=== PATIENT | male | born 1940 | race Caucasian/White ===

== ENCOUNTER → 2016-09-29 | Outpatient (CLI) | payer OTHER ==
[~2016-09-29] MED LIST: ASPIRIN81 M2 PO; AVALIDE 150/1 TABLET PO; COUMADIN1 MG PO; ENDOCET 5-3251 EACH PO; FLUOROURACIL40 GM TP; GLUCOSAMINE &1 EAC1 PO; LORAZEPAM0.5 MG PO; MULTIPLE VITAM1 EACH PO; NIACIN500 M4 PO; VITAMIN D31000 UNIT PO; ZOFRAN4 MG PO
[2016-09-30 16:13] LABS: Flow Clinical Information NOT PROVIDED (()); Flow Number of Markers 22 (()); Flow Spec Viability 66 % (())
== END | disposition home or self-care (01) ==
LOC: OPR 09:44 → EDSTATUS 10:00
PROVIDERS: Radiology Diagnostic Radiology
PROC: 0YB53ZX Excision of Right Inguinal Region, Percutaneous Approach, Diagnostic (ICD-10-PCS; principal; 2016-09-29)
DX: C85.95 Non-Hodgkin lymphoma, unspecified, lymph nodes of inguinal region and lower limb (principal); F17.200 Nicotine dependence, unspecified, uncomplicated; R91.1 Solitary pulmonary nodule
CPT/HCPCS: 77012; 88184 90; 88185 90; 88189 90; 88305; 88341 TC; 88342 TC; J2405; J3010

== ENCOUNTER → 2016-11-12 | Outpatient (CLI) | payer OTHER ==
[~2016-11-12] VITALS: Ht 177.8 cm; Wt 104.3 kg
[2016-11-12 10:14] LABS: PROTHROMBIN TIME 11.4 SEC (10.2-12.9)
[2016-11-12 10:16] LABS: PTT 32.3 SEC (25-37)
== END | disposition home or self-care (01) ==
LOC: OPR 09:33 → EDSTATUS 10:00
PROVIDERS: Internal Medicine Hematology & Oncology
PROC: 0BBF3ZX Excision of Right Lower Lung Lobe, Percutaneous Approach, Diagnostic (ICD-10-PCS; principal; 2016-11-12)
DX: R91.1 Solitary pulmonary nodule (principal); Z85.72 Personal history of non-Hodgkin lymphomas
CPT/HCPCS: 71010; 77012; 85610; 85730; 88305; 88341 TC; 88342 TC; J3010

== ENCOUNTER → 2016-11-27 | Outpatient (CLI) | payer OTHER | END | disposition home or self-care (01) | LOC: OPR 08:44 → EDSTATUS 09:00 | PROC: 0JB73ZX Excision of Back Subcutaneous Tissue and Fascia, Percutaneous Approach, Diagnostic (ICD-10-PCS; principal; 2016-11-27) | DX: C34.31 Malignant neoplasm of lower lobe, right bronchus or lung (principal); C85.93 Non-Hodgkin lymphoma, unspecified, intra-abdominal lymph nodes | CPT/HCPCS: 77012; 88305; 88342 TC; J3010 ==

== ENCOUNTER → 2016-12-10 | Outpatient (CLI) | payer OTHER ==
[~2016-12-10] VITALS: Ht 177.8 cm; Wt 105.2 kg
[~2016-12-10] MED LIST changes: +LO-DOSE ASPIRIN81 M1 PO
[2016-12-10 10:21] LABS: MCH 29.7 PG (29.0-34.0); MCV 87.6 FL (86-99); MEAN PLAT.VOLUME 9.8 uM^3 (9.0-12.4); PLATELET COUNT 208 K/uL (156-360); RBC DIS.WIDTH-CV 13.1 % (11.8-14.6); RBC DIS.WIDTH-SD 41.7 % (39-53); RED BLOOD COUNT 4.91 M/uL (4.00-5.50); WHITE BLOOD COUNT 9.1 K/uL (4.1-10.2)
== END | disposition home or self-care (01) ==
LOC: OPR 09:19 → EDSTATUS 10:00
PROVIDERS: Internal Medicine Hematology & Oncology
PROC: 0BBF3ZX Excision of Right Lower Lung Lobe, Percutaneous Approach, Diagnostic (ICD-10-PCS; principal; 2016-12-10)
DX: J84.10 Pulmonary fibrosis, unspecified (principal); R59.9 Enlarged lymph nodes, unspecified; J95.811 Postprocedural pneumothorax; E11.9 Type 2 diabetes mellitus without complications; I10 Essential (primary) hypertension; Z90.49 Acquired absence of other specified parts of digestive tract; Z98.1 Arthrodesis status
CPT/HCPCS: 71010; 77012; 85027; 88305; J3010

== ENCOUNTER → 2017-08-23 | Outpatient (CLI) | payer OTHER ==
[2017-08-23 08:09] LABS: BASE EXCESS 1.2 mEq/L (-3 to +3); BICARBONATE 25.1 mEq/L (22-26); CARBOXY HGB 1.9 % (0-5); METHEMOGLOBIN 1.1 % (0-1.5); PCO2 37 mm Hg (35-45); PO2 85 mm Hg (80-100); pH 7.44 (7.35-7.45)
[2017-08-23 08:10] LABS: COMMENTS - BLOOD GASES NAC+; FI02 21 %; SITE RR
== END | disposition home or self-care (01) ==
LOC: RES 07:33
PROVIDERS: Thoracic Surgery (Cardiothoracic Vascular Surgery)
DX: R91.8 Other nonspecific abnormal finding of lung field (principal)
CPT/HCPCS: 36600; 82803; 94060; 94726; 94729

== ENCOUNTER → 2017-08-25 | Outpatient (CLI) | payer MEDICARE, OTHER | END | disposition home or self-care (01) | LOC: CDC 15:20 | DX: I45.10 Unspecified right bundle-branch block (principal); R94.31 Abnormal electrocardiogram [ECG] [EKG] | CPT/HCPCS: 93000 ==

== ENCOUNTER 2017-09-02 22:16 | Inpatient (IN) | payer OTHER ==
[~2017-09-02] VITALS: Ht 177.8 cm; Wt 120.1 kg
[2017-09-03 07:26] LABS: INTER. NORMALIZED RATIO 1.1
[2017-09-03 07:46] VITALS: BP 156/85
[2017-09-03 14:27] VITALS: BP 160/74
[2017-09-03 15:45] VITALS: BP 151/78
[2017-09-03 19:46] VITALS: BP 136/80
[2017-09-03 23:42] VITALS: BP 139/68
[2017-09-04 04:37] VITALS: BP 149/71
[2017-09-04 06:55] LABS: HEMATOCRIT 39.3 % (38.0-50.0); HEMOGLOBIN 13.4 G/DL (12.5-16.6); MCH 30.6 PG (29.0-34.0); MCHC 34.1 G/DL (30.0-36.0); MCV 89.7 FL (86-99); PLATELET COUNT 201 K/uL (156-360); RBC DIS.WIDTH-CV 12.9 % (11.8-14.6); RBC DIS.WIDTH-SD 42.4 % (39-53); RED BLOOD COUNT 4.38 M/uL (4.00-5.50); WHITE BLOOD COUNT 15.1 K/uL (4.1-10.2)
[2017-09-04 07:21] LABS: CHLORIDE 103 MEQ/L (99-109); CREATININE 0.8 MG/DL (0.6-1.3); GFR ESTIMATE (CALCULATED) > 59 mL/min/ (58.99-99999); GLUCOSE 113 mg/dL (70-99); POTASSIUM 4.7 MEQ/L (3.7-5.4); SODIUM 139 MEQ/L (136-147); UREA NITROGEN (BUN) 13 mg/dL (9-23)
[2017-09-04 08:56] VITALS: BP 153/72
[2017-09-04 11:39] VITALS: BP 144/68
[2017-09-04 16:34] VITALS: BP 144/69
[2017-09-04 20:27] VITALS: BP 144/67
[2017-09-05 01:40] VITALS: BP 145/65
[2017-09-05 06:15] LABS: HEMATOCRIT 41.5 % (38.0-50.0); HEMOGLOBIN 13.8 G/DL (12.5-16.6); MCH 30.3 PG (29.0-34.0); MCHC 33.3 G/DL (30.0-36.0); PLATELET COUNT 215 K/uL (156-360); RBC DIS.WIDTH-CV 13.3 % (11.8-14.6); RBC DIS.WIDTH-SD 44.4 % (39-53); RED BLOOD COUNT 4.56 M/uL (4.00-5.50); WHITE BLOOD COUNT 14.4 K/uL (4.1-10.2)
[2017-09-05 06:25] VITALS: BP 150/65
[2017-09-05 08:40] VITALS: BP 140/73
[2017-09-05 12:18] VITALS: BP 142/72
[2017-09-05 20:06] VITALS: BP 149/72
[2017-09-06 00:03] VITALS: BP 168/81
[2017-09-06 08:00] VITALS: BP 130/65
[2017-09-06 12:22] VITALS: BP 167/84
[2017-09-06 15:49] VITALS: BP 143/74
[2017-09-06 19:43] VITALS: BP 155/81
[2017-09-06 23:17] VITALS: BP 134/75
[2017-09-07 04:28] VITALS: BP 153/82
[2017-09-07 06:55] LABS: HEMATOCRIT 40.3 % (38.0-50.0); HEMOGLOBIN 13.8 G/DL (12.5-16.6); MCH 30.9 PG (29.0-34.0); MCHC 34.2 G/DL (30.0-36.0); MCV 90.4 FL (86-99); PLATELET COUNT 243 K/uL (156-360); RBC DIS.WIDTH-CV 13.1 % (11.8-14.6); RED BLOOD COUNT 4.46 M/uL (4.00-5.50); WHITE BLOOD COUNT 12.1 K/uL (4.1-10.2)
[2017-09-07 07:47] VITALS: BP 127/78
[2017-09-07 12:06] VITALS: BP 145/81
[2017-09-07 16:17] VITALS: BP 123/73
[2017-09-07 19:53] VITALS: BP 144/75
[2017-09-07 23:55] VITALS: BP 128/72
[2017-09-08 04:08] VITALS: BP 127/68
[2017-09-08 08:53] VITALS: BP 119/69
[2017-09-08 11:55] VITALS: BP 131/71
[2017-09-08 16:47] VITALS: BP 142/73
[2017-09-08] MEDS ORDERED: DOCUSATE SODIU100 MG PO (19:23)
[2017-09-08] MEDS ORDERED: OXYCODONE HCL5 MG PO (19:23)
[2017-09-22] MEDS ORDERED: COLACE100 MG PO (11:32)
[2017-09-22] MEDS ORDERED: BACTRIM,SEPT1 TABLET PO (11:33)
[2017-09-22] MEDS ORDERED: FLOMAX0.4 MG PO (11:33)
== END 2017-09-08 20:15 | disposition home or self-care (01) | DRG 164 ==
LOC: ENRESERV 22:16 → 3EAST 09-03 06:43 → 4WEST 09-03 06:43 → 2SOUTH 09-03 06:43 → ENRESERV 09-03 09:29 → CANRESERV 09-03 09:29 → 2SOUTH 09-03 11:26 → CANRESERV 09-03 13:34 → ENRESERV 09-03 13:34 → 3EAST 09-03 14:13
PROVIDERS: Surgery; Thoracic Surgery (Cardiothoracic Vascular Surgery)
PROC: 0BBF4ZZ Excision of Right Lower Lung Lobe, Percutaneous Endoscopic Approach (ICD-10-PCS; principal; 2017-09-03)
DX: C34.31 Malignant neoplasm of lower lobe, right bronchus or lung (principal); C78.2 Secondary malignant neoplasm of pleura; Q85.9 Phakomatosis, unspecified; I10 Essential (primary) hypertension; I45.10 Unspecified right bundle-branch block; G47.30 Sleep apnea, unspecified; M47.9 Spondylosis, unspecified; N40.0 Benign prostatic hyperplasia without lower urinary tract symptoms; Z87.891 Personal history of nicotine dependence; Z85.72 Personal history of non-Hodgkin lymphomas; Z85.828 Personal history of other malignant neoplasm of skin; Z92.21 Personal history of antineoplastic chemotherapy; Z96.651 Presence of right artificial knee joint; Z79.82 Long term (current) use of aspirin; Z80.0 Family history of malignant neoplasm of digestive organs
CPT/HCPCS: 71045; 71046; 80048; 85027; 85610; 86850; 86870; 86900; 86901; 86920; 88307; 88313; 88341 TC; 88342 TC; 94640; 94640 76; 94799; 97530 GO; 97530 GP; 99202; J0131; J0690; J1100; J1170; J1644; J1885; J2405; J2710; J3010; J7120; J7643

== ENCOUNTER 2017-09-23 21:39 | Inpatient (IN) | payer OTHER ==
[~2017-09-23] VITALS: Ht 177.8 cm; Wt 110.6 kg
[~2017-09-23 21:39] MED LIST changes: +BACTRIM,SEPT1 TABLET PO; +COLACE100 MG PO; +DOCUSATE SODIU100 MG PO; +FLOMAX0.4 MG PO; +OXYCODONE HCL5 MG PO
[2017-09-24] VITALS (10 sets, daily range): BP systolic 121–142; BP diastolic 53–82
[2017-09-24 06:30] LABS: INTER. NORMALIZED RATIO 1.1
[2017-09-24 06:33] LABS: PTT 28.7 SEC (25-37)
[2017-09-25 09:10] LABS: CHLORIDE 100 MEQ/L (99-109); CREATININE 0.8 MG/DL (0.6-1.3); GFR ESTIMATE (CALCULATED) > 59 mL/min/ (58.99-99999); GLUCOSE 128 mg/dL (70-99); POTASSIUM 4.8 MEQ/L (3.7-5.4); SODIUM 132 MEQ/L (136-147); UREA NITROGEN (BUN) 15 mg/dL (9-23)
[2017-09-25 09:34] VITALS: BP 124/59
[2017-09-25 09:47] LABS: HEMATOCRIT 34.4 % (38.0-50.0); HEMOGLOBIN 11.4 G/DL (12.5-16.6); MCH 30.1 PG (29.0-34.0); MCHC 33.1 G/DL (30.0-36.0); MCV 90.8 FL (86-99); PLATELET COUNT 244 K/uL (156-360); RBC DIS.WIDTH-CV 13.2 % (11.8-14.6); RBC DIS.WIDTH-SD 42.8 % (39-53); RED BLOOD COUNT 3.79 M/uL (4.00-5.50); WHITE BLOOD COUNT 15.6 K/uL (4.1-10.2)
[2017-09-25 11:58] VITALS: BP 110/61
[2017-09-25 15:49] VITALS: BP 112/72
[2017-09-25 19:23] VITALS: BP 132/61
[2017-09-25 23:45] VITALS: BP 108/56
[2017-09-26 04:40] VITALS: BP 122/59
[2017-09-26 07:25] VITALS: BP 122/63
[2017-09-26 11:56] VITALS: BP 140/93
[2017-09-26 15:32] VITALS: BP 155/70
[2017-09-26 19:43] VITALS: BP 142/67
[2017-09-26 23:05] VITALS: BP 140/63
[2017-09-27 04:16] VITALS: BP 151/103
[2017-09-27 05:48] LABS: HEMATOCRIT 32.9 % (38.0-50.0); HEMOGLOBIN 11.1 G/DL (12.5-16.6); MCH 30.4 PG (29.0-34.0); MCHC 33.7 G/DL (30.0-36.0); MCV 90.1 FL (86-99); PLATELET COUNT 211 K/uL (156-360); RBC DIS.WIDTH-CV 13.3 % (11.8-14.6); RBC DIS.WIDTH-SD 43.6 % (39-53); RED BLOOD COUNT 3.65 M/uL (4.00-5.50); WHITE BLOOD COUNT 12.6 K/uL (4.1-10.2)
[2017-09-27 06:07] LABS: CHLORIDE 105 MEQ/L (99-109); CREATININE 0.8 MG/DL (0.6-1.3); GFR ESTIMATE (CALCULATED) > 59 mL/min/ (58.99-99999); GLUCOSE 119 mg/dL (70-99); MAGNESIUM 2.2 mg/dl (1.3-2.7); PHOSPHORUS 2.6 mg/dL (2.5-4.9); POTASSIUM 4.3 MEQ/L (3.7-5.4); SODIUM 137 MEQ/L (136-147); UREA NITROGEN (BUN) 15 mg/dL (9-23)
[2017-09-27 07:28] VITALS: BP 156/67
[2017-09-27 11:50] VITALS: BP 123/58
[2017-09-27 16:20] VITALS: BP 143/65
[2017-09-27 20:21] VITALS: BP 126/60
[2017-09-28 00:37] VITALS: BP 136/61
[2017-09-28 05:01] VITALS: BP 147/68
[2017-09-28 09:00] VITALS: BP 140/80
[2017-09-28 10:09] VITALS: BP 133/63
[2017-09-28 16:30] VITALS: BP 147/69
[2017-09-28 19:52] VITALS: BP 139/65
[2017-09-29 00:30] VITALS: BP 137/75
[2017-09-29 04:31] VITALS: BP 151/68
[2017-09-29 04:43] LABS: HEMATOCRIT 32.9 % (38.0-50.0); HEMOGLOBIN 11.5 G/DL (12.5-16.6); MCH 31.4 PG (29.0-34.0); MCV 89.9 FL (86-99); PLATELET COUNT 236 K/uL (156-360); RBC DIS.WIDTH-CV 13.5 % (11.8-14.6); RBC DIS.WIDTH-SD 44.2 % (39-53); RED BLOOD COUNT 3.66 M/uL (4.00-5.50); WHITE BLOOD COUNT 11.2 K/uL (4.1-10.2)
[2017-09-29 04:53] LABS: CHLORIDE 103 mEq/L (99-109); POTASSIUM 4.5 mEq/L (3.7-5.4); SODIUM 137 mEq/L (136-147)
[2017-09-29 04:55] LABS: GLUCOSE 112 mg/dL (70-99)
[2017-09-29 04:58] LABS: CREATININE 0.8 mg/dL (0.6-1.3); GFR ESTIMATE (CALCULATED) > 59 mL/min/ (58.99-99999)
[2017-09-29 04:59] LABS: UREA NITROGEN (BUN) 11 mg/dL (9-23)
[2017-09-29 07:27] VITALS: BP 144/58
[2017-09-29 11:20] VITALS: BP 128/64
[2017-09-29] MEDS ORDERED: ACETAMINOPHEN325 M1 PO (15:09)
[2017-09-29] MEDS ORDERED: HEPARIN SO5000 UNIT4 SC (15:10)
[2017-09-29] MEDS ORDERED: DIGOXIN250 MCG PO (15:10)
[2017-09-29] MEDS ORDERED: FAMOTIDINE20 MG PO (15:10)
[2017-09-29] MEDS ORDERED: IBUPROFEN600 MG PO (15:11)
[2017-09-29] MEDS ORDERED: METOPROLOL TART25 MG PO (15:12)
[2017-09-29] MEDS ORDERED: LORATADINE10 M2 PO (15:12)
== END 2017-09-29 14:05 | DRG 164 ==
LOC: CANRESERV 21:39 → ENRESERV 21:39 → 2SOUTH 09-24 05:32 → 4EAST 09-24 05:32 → ENRESERV 09-24 08:07 → 2SOUTH 09-24 09:02 → ENRESERV 09-24 14:34 → 4WEST 09-24 16:07 → 2SOUTH 09-24 23:36 → ENRESERV 09-25 08:04 → 2SOUTH 09-25 08:05 → 4EAST 09-25 09:10
PROVIDERS: Physician Assistant; Surgery; Thoracic Surgery (Cardiothoracic Vascular Surgery)
DX: C34.31 Malignant neoplasm of lower lobe, right bronchus or lung (principal); Q85.8 Other phakomatoses, not elsewhere classified; G47.30 Sleep apnea, unspecified; I10 Essential (primary) hypertension; K59.00 Constipation, unspecified; N40.0 Benign prostatic hyperplasia without lower urinary tract symptoms; Z96.651 Presence of right artificial knee joint; Z85.72 Personal history of non-Hodgkin lymphomas; Z87.891 Personal history of nicotine dependence; Z79.82 Long term (current) use of aspirin
CPT/HCPCS: 71045; 71046; 80048; 83735; 84100; 85027; 85610; 85730; 86850; 86900; 86901; 86920; 87077; 87086; 87186; 87641; 88307; 94010; 94640; 94640 76; 94799; 97530 GO; 99202; J0131; J0690; J1100; J1160; J1170; J1644; J1885; J2250; J2370; J2405; J2710; J3010; J7040; J7050; J7120; J7643; Q0175; S0020

== ENCOUNTER 2017-09-29 11:53 | Inpatient (IN) | payer OTHER ==
[~2017-09-29] VITALS: Ht 177.8 cm; Wt 109.3 kg
[2017-09-29 14:45] VITALS: BP 138/64
[2017-09-29] MEDS ORDERED: ACETAMINOPHEN325 M1 PO (15:09)
[2017-09-29] MEDS ORDERED: DIGOXIN250 MCG PO (15:10)
[2017-09-29] MEDS ORDERED: HEPARIN SO5000 UNIT4 SC (15:10)
[2017-09-29] MEDS ORDERED: FAMOTIDINE20 MG PO (15:10)
[2017-09-29] MEDS ORDERED: IBUPROFEN600 MG PO (15:11)
[2017-09-29] MEDS ORDERED: LORATADINE10 M2 PO (15:12)
[2017-09-29] MEDS ORDERED: METOPROLOL TART25 MG PO (15:12)
[2017-09-29 21:38] VITALS: BP 141/63
[2017-09-29 23:48] VITALS: BP 115/56
[2017-09-30 04:48] VITALS: BP 129/59
[2017-09-30 06:31] LABS: HEMATOCRIT 35.6 % (38.0-50.0); HEMOGLOBIN 11.9 G/DL (12.5-16.6); MCH 30.4 PG (29.0-34.0); MCHC 33.4 G/DL (30.0-36.0); MCV 90.8 FL (86-99); PLATELET COUNT 249 K/uL (156-360); RBC DIS.WIDTH-CV 13.7 % (11.8-14.6); RBC DIS.WIDTH-SD 45.1 % (39-53); RED BLOOD COUNT 3.92 M/uL (4.00-5.50)
[2017-09-30 06:56] LABS: ALBUMIN 3.2 G/DL (3.2-4.8); ALKALINE PHOSPHATASE 74 IU/L (3-129); ALT (GPT) 34 IU/L (3-49); AST (GOT) 34 IU/L (2-34); CHLORIDE 104 MEQ/L (99-109); CREATININE 0.9 MG/DL (0.6-1.3); GFR ESTIMATE (CALCULATED) > 59 mL/min/ (58.99-99999); GLUCOSE 109 mg/dL (70-99); POTASSIUM 4.6 MEQ/L (3.7-5.4); SODIUM 139 MEQ/L (136-147); TOTAL BILIRUBIN 0.5 MG/DL (0.0-1.0); UREA NITROGEN (BUN) 12 mg/dL (9-23)
[2017-09-30 15:30] VITALS: BP 139/60
[2017-10-01 05:15] VITALS: BP 144/67
[2017-10-01 06:48] LABS: BASOPHIL (%) 0.7 % (0-1); BASOPHIL COUNT 0.1 K/uL (0-0.1); EOSINOPHIL (%) 16.6 % (0-5); HEMATOCRIT 34.8 % (38.0-50.0); HEMOGLOBIN 11.8 G/DL (12.5-16.6); IMMATURE GRANULOCYTE (%) 1.2 % (0.0-0.7); LYMPHOCYTE (%) 11.6 % (15-42); LYMPHOCYTE COUNT 1.4 K/uL (1.0-2.8); MCH 30.5 PG (29.0-34.0); MCHC 33.9 G/DL (30.0-36.0); MCV 89.9 FL (86-99); MONOCYTE (%) 8.8 % (3-12); MONOCYTE COUNT 1.1 K/uL (0-0.8); NEUTROPHIL (%) 61.1 % (45-76); NEUTROPHIL COUNT 7.4 K/uL (1.8-6.4); PLATELET COUNT 246 K/uL (156-360); RBC DIS.WIDTH-CV 13.4 % (11.8-14.6); RBC DIS.WIDTH-SD 43.9 % (39-53); RED BLOOD COUNT 3.87 M/uL (4.00-5.50); WHITE BLOOD COUNT 12.1 K/uL (4.1-10.2)
[2017-10-01 07:12] LABS: CHLORIDE 104 MEQ/L (99-109); GFR ESTIMATE (CALCULATED) > 59 mL/min/ (58.99-99999); GLUCOSE 105 mg/dL (70-99); POTASSIUM 4.5 MEQ/L (3.7-5.4); SODIUM 140 MEQ/L (136-147); UREA NITROGEN (BUN) 13 mg/dL (9-23)
[2017-10-01 14:08] VITALS: BP 134/61
[2017-10-02 04:17] VITALS: BP 171/78
[2017-10-02 08:46] VITALS: BP 121/58
[2017-10-02 16:00] VITALS: BP 145/67
[2017-10-03 04:23] VITALS: BP 158/72
[2017-10-03 16:00] VITALS: BP 134/63
[2017-10-04 03:57] VITALS: BP 142/64
[2017-10-04 16:46] VITALS: BP 118/58
[2017-10-04] MEDS ORDERED: CITALOPRAM HBR10 MG PO (22:57)
[2017-10-04] MEDS ORDERED: METOPROLOL TART25 MG PO (22:57)
[2017-10-05 04:31] VITALS: BP 143/67
== END 2017-10-05 14:13 | DRG 945 ==
LOC: 3WEST 11:53
PROVIDERS: Family Medicine Sports Medicine; Physical Medicine & Rehabilitation Pain Medicine
PROC: F07M0ZZ Range of Motion and Joint Mobility Treatment of Musculoskeletal System - Whole Body (ICD-10-PCS; principal; 2017-09-29)
DX: R53.1 Weakness (principal); R26.2 Difficulty in walking, not elsewhere classified; G89.18 Other acute postprocedural pain; R07.89 Other chest pain; J90 Pleural effusion, not elsewhere classified; G47.00 Insomnia, unspecified; R06.02 Shortness of breath; I10 Essential (primary) hypertension; E66.9 Obesity, unspecified; Z68.34 Body mass index [BMI] 34.0-34.9, adult; D62 Acute posthemorrhagic anemia; D72.829 Elevated white blood cell count, unspecified; Z85.118 Personal history of other malignant neoplasm of bronchus and lung; Z85.72 Personal history of non-Hodgkin lymphomas; Z87.891 Personal history of nicotine dependence; Z90.2 Acquired absence of lung [part of]; Z96.651 Presence of right artificial knee joint; Z80.0 Family history of malignant neoplasm of digestive organs
CPT/HCPCS: 80048; 80053; 85025; 85027; 94799; 97110 GO; 97530 GP; 99202; A6214; J1650